=== PATIENT | male | born 1975 | race Two or more races ===

== ENCOUNTER 2018-05-02 18:51 | Emergency (ER) | payer SELFPAY ==
[2018-05-02] MEDS ORDERED: ONDANSETRON 4 MG TAB.RAPDIS PO ONE (19:19)
[2018-05-02] MEDS ORDERED: DICYCLOMINE HCL 20 MG TABLET PO ONE (19:19)
--- NOTE | 2018-05-02 19:21 | ER Document Report ---
ED Medical Screen (RME) - General Chief Complaint: Flu Symptoms Stated Complaint: FLU SYMPTOMS Time Seen by Provider: 05/02/18 19:12 Notes: RAPID MEDICAL EVALUATION DISCLOSURE I have seen this patient as part of a Rapid Medical Evaluation and, if applicable, placed any initially appropriate orders. The patient will be seen and fully evaluated, including a full history and physical exam, by a provider (in Main ED or Fast Track) when a room becomes available. 42-year-old male here with complaints of several weeks cough congestion runny nose sore throat. He went to the urgent care for this and is currently on a course of Augmentin but states he is not getting any better. His main complaint is epigastric and right upper quadrant abdominal pain that has been ongoing for the past 1-2 months. It is worse with eating, mainly has noticed worsening with pork. He does have associated nausea vomiting diarrhea. EXAM CTAB RRR Mild right upper quadrant and epigastric TTP No Buckley sign TRAVEL OUTSIDE OF THE [place] IN LAST 30 DAYS: No - Related Data Allergies/Adverse Reactions: No Known Allergies Allergy (Unverified 05/02/18 18:57) Past Medical History Renal/ Medical History: Denies: Hx Peritoneal Dialysis Physical Exam - Vital signs Vitals: Temp Pulse Resp BP Pulse Ox 97.9 F 77 16 143/97 H 99 05/02/18 19:05 05/02/18 19:05 05/02/18 19:05 05/02/18 19:05 05/02/18 19:05 Course - Vital Signs Vital signs: Temp Pulse Resp BP Pulse Ox 97.9 F 77 16 143/97 H 99 05/02/18 19:05 05/02/18 19:05 05/02/18 19:05 05/02/18 19:05 05/02/18 19:05
[2018-05-02 19:39] LABS: ABSOLUTE BASOPHILS # (AUTO) 0.1 10^3/uL (0.0-0.2); ABSOLUTE EOSINOPHILS # (AUTO) 0.3 10^3/uL (0.0-0.6); ABSOLUTE LYMPHOCYTES (AUTO) 3.5 10^3/uL (0.5-4.7); ABSOLUTE MONOCYTES (AUTO) 0.7 10^3/uL (0.1-1.4); ABSOLUTE NEUT (AUTO) 5.6 10^3/uL (1.7-8.2); BASOPHILS % (AUTO) 1.3 % (0-2); EOSINOPHILS % (AUTO) 3.2 % (0-6); HEMATOCRIT 45.7 % (37.9-51.0); HEMOGLOBIN 15.5 g/dL (13.5-17.0); LYMPHOCYTES % (AUTO) 34.5 % (13-45); MEAN CORPUSCULAR HEMOGLOBIN 29.3 pg (27.0-33.4); MEAN CORPUSCULAR VOLUME 86 fl (80-97); MONOCYTES % (AUTO) 6.6 % (3-13); PLATELET COUNT 290 10^3/uL (150-450); RED BLOOD COUNT 5.29 10^6/uL (4.35-5.55); SEGMENTED NEUTROPHILS % (AUTO) 54.4 % (42-78); TOTAL CELLS COUNTED % (AUTO) 100 %; WHITE BLOOD COUNT 10.2 10^3/uL (4.0-10.5)
--- NOTE | 2018-05-02 19:47 | RADIOLOGY REPORT (SQ) ---
EXAM DESCRIPTION: ACUTE ABDOMEN SERIES COMPLETED DATE/TIME: 05/02/2018 7:38 pm REASON FOR STUDY: cough and upper abd pain COMPARISON: None. NUMBER OF VIEWS: Three views. TECHNIQUE: Frontal chest, supine abdomen and upright/decubitus abdomen radiographic images acquired. LIMITATIONS: None. FINDINGS: CHEST: Lungs clear of infiltrates. FREE AIR: None. No abnormal gas collections. BOWEL GAS PATTERN: There is large amount of stool throughout the colon. No evidence of mechanical ob struction. CALCIFICATIONS: No suspicious calcifications. HARDWARE: None in the abdomen. SOFT TISSUES: No gross mass or suggestion of organomegaly. BONES: No acute fracture. No worrisome bone lesions. OTHER: No other significant finding. IMPRESSION: Constipation. TECHNICAL DOCUMENTATION: JOB ID: [id number] [employer]- All Rights Reserved Reading location - IP/workstation name: [email or web address]
[2018-05-02 19:57] LABS: ALANINE AMINOTRANSFERASE 58 U/L (21-72); ALBUMIN 4.4 g/dL (3.5-5.0); ALKALINE PHOSPHATASE 60 U/L (38-126); ANION GAP 9 (5-19); ASPARTATE AMINO TRANSFERASE 36 U/L (17-59); BILIRUBIN,DIRECT 0.3 mg/dL (0.0-0.4); BILIRUBIN,TOTAL 0.3 mg/dL (0.2-1.3); BLOOD UREA NITROGEN 25 mg/dL (7-20); CALCIUM 9.6 mg/dL (8.4-10.2); CARBON DIOXIDE 24 mmol/L (22-30); CHLORIDE 107 mmol/L (98-107); GLUCOSE 103 mg/dL (75-110); POTASSIUM 4.4 mmol/L (3.6-5.0); SODIUM 140.3 mmol/L (137-145); TOTAL PROTEIN 7.6 g/dL (6.3-8.2)
--- NOTE | 2018-05-02 23:00 | RADIOLOGY REPORT (SQ) ---
EXAM DESCRIPTION: US ABDOMEN LIMITED COMPLETED DATE/TME: 05/02/2018 20:31 CLINICAL HISTORY: 42 years, Male, RUQ pain COMPARISON: None. TECHNIQUE: Limited ultrasound right upper quadrant LIMITATIONS: None. FINDINGS: Echogenic appearance to the liver consistent with diffuse fatty infiltrative change. No definitive gallstones. Layering sludge in the gallbladder lumen. Negative sonographic Buckley sign. No gallbladder wall thickening or pericholecystic fluid. CBD measures 3.9 mm. Pancreas not well seen due to bowel gas. The visualized right kidney is unremarkable. There is no ascites. IMPRESSION: Fatty infiltrative change to the liver. Sludge in the gallbladder lumen. copyright 2010 [employer]- All Rights Reserved
--- NOTE | 2018-05-02 23:08 | ER Document Report ---
ED General - General Chief Complaint: Flu Symptoms Stated Complaint: FLU SYMPTOMS Time Seen by Provider: 05/02/18 19:12 Notes: Patient is a 42-year-old male presents to the emergency department complaining of generalized abdominal pain for the last month. Patient states pain is intermittent at times. Patient states pain at times makes him vomit nonbloody, and also makes him have diarrhea. Patient states he has had 2 episodes of diarrhea in the last 24 hours. Patient denies any vomiting in the last 24 hours. Patient denies any fever but states he does break out in a sweat at times. Patient complains of generalized cough, congestion as well. Patient denies any chest pain, shortness of breath, dysuria. Past medical history: None Medications: None Allergies: None TRAVEL OUTSIDE OF THE [place] IN LAST 30 DAYS: No - Related Data Allergies/Adverse Reactions: No Known Allergies Allergy (Unverified 05/02/18 18:57) Past Medical History - General Information source: Patient - Social History Smoking Status: Unknown if Ever Smoked Family History: Reviewed & Not Pertinent Patient has suicidal ideation: No Patient has homicidal ideation: No Renal/ Medical History: Denies: Hx Peritoneal Dialysis Review of Systems - Review of Systems Constitutional: See HPI EENT: See HPI Cardiovascular: See HPI Respiratory: See HPI Gastrointestinal: See HPI Genitourinary: See HPI Male Genitourinary: No symptoms reported Musculoskeletal: No symptoms reported Skin: No symptoms reported Hematologic/Lymphatic: No symptoms reported Neurological/Psychological: No symptoms reported Physical Exam - Vital signs Vitals: Temp Pulse Resp BP Pulse Ox 97.9 F 77 16 143/97 H 99 05/02/18 19:05 05/02/18 19:05 05/02/18 19:05 05/02/18 19:05 05/02/18 19:05 - Notes Notes: GENERAL: Obese alert, interacts well. No acute distress. HEAD: Normocephalic, atraumatic. No frontal or maxillary sinus tenderness EYES: Pupils equal, round, and reactive to light. Extraocular movements intact. ENT: Oral mucosa moist, tongue midline. Nares patent, TM's intact, nonerythematous, nonbulging. Pharynx within normal limits. NECK: Full range of motion. Supple. Trachea midline. No lymphadenopathy appreciated LUNGS: Clear to auscultation bilaterally, no wheezes, rales, or rhonchi. No respiratory distress. HEART: Regular rate and rhythm. No murmur ABDOMEN: Soft, Non-distended. Bowel sounds present in all 4 quadrants. No McBurney's point tenderness, positive Buckley sign. EXTREMITIES: Moves all 4 extremities spontaneously. No edema, normal radial and dorsalis pedis pulses bilaterally. No cyanosis. BACK: no cervical, thoracic, lumbar midline tenderness. No saddle anesthesia, normal distal neurovascular exam. No CVA tenderness bilaterally NEUROLOGICAL: Alert and oriented x3. Normal speech. cranial nerves II through XII grossly intact PSYCH: Normal affect, normal mood. SKIN: Warm, dry, normal turgor. No rashes or lesions noted. Course - Re-evaluation Re-evalutation: 05/02/18 23:03 Patient's ultrasound does show sludge in the gallbladder lumen. No signs of cholecystitis, no signs of leukocytosis or anemia on patient's labs. Discussed patient's KUB and possible diagnosis of constipation. Discussed use of MiraLAX and need to follow-up with surgery electively. Patient voices understanding and is stable for discharge. - Vital Signs Vital signs: Temp Pulse Resp BP Pulse Ox 98.0 F 72 16 124/89 H 99 05/02/18 23:20 05/02/18 23:20 05/02/18 23:20 05/02/18 23:20 05/02/18 19:05 - Laboratory Result Diagrams: 05/02/18 19:23 05/02/18 19:23 Laboratory results interpreted by me: 05/02/18 19:23 BUN 25 H Discharge - Discharge Clinical Impression: Sludge in gallbladder Constipation Qualifiers: Constipation type: other constipation type Qualified Code(s): K59.09 - Other constipation Condition: Stable Disposition: HOME, SELF-CARE Instructions: Constipation ([facility]), Gallbladder Disease ([facility]) Additional Instructions: As we discussed you have been seen and treated in the emergency department for constipation and something called sludge and your gallbladder. You should fo llow-up with your primary care provider and inevitably a surgeon to potentially have your gallbladder removed. This is not done emergently. Please take medications as prescribed. Please follow-up with primary care in the next 24-48 hours. Please return to the emergency room for any other concerning symptoms. Prescriptions: Ondansetron [Zofran Odt 4 mg Tablet] 1 - 2 tab PO Q4H PRN #15 tab.rapdis PRN Reason: For Nausea/Vomiting Polyethylene Glycol 3350 [Miralax] 1 cap PO DAILY #527 powder
[2018-05-02 23:23] VITALS: BP 124/89
== END 2018-05-02 23:23 | disposition home or self-care (01) ==
LOC: ER 18:51
DX: K82.9 Disease of gallbladder, unspecified (principal); K59.09 Other constipation; R10.84 Generalized abdominal pain; R11.10 Vomiting, unspecified; R19.7 Diarrhea, unspecified; R05 Cough; R09.81 Nasal congestion
CPT/HCPCS: 99284; 36415; 83690; 85025; 80053; 74022; 76705; J3490; S0119